=== PATIENT | female | born 1965 | race Caucasian/White ===

== ENCOUNTER 2025-04-20 12:22 | Inpatient (IN) | payer BC, SELFPAY ==
[2025-04-20] VITALS (7 sets, daily range): BP systolic 124–181; BP diastolic 51–96; BMI 37.5; BMI 36.8
[2025-04-20] MEDS: DECADRON 10 MG IV (06:27)
[2025-04-20] MEDS: TORADOL 15 MG IV (06:27)
[2025-04-20] MEDS: NSS 1000 IV (06:28)
--- NOTE | 2025-04-20 06:49 | ED.GENMED ---
History of Present Illness
<Roseanne Atwood PA-C - Last Filed: 04/20/25 09:52>
General
Chief Complaint: Swelling
Time Seen by Provider: 04/20/25 06:03
History of Present Illness
History of Present Illness:
see MDM
Phy Exam
<Roseanne Atwood PA-C - Last Filed: 04/20/25 09:52>
Physical Exam
Physical Exam:
see MDM
Scores
<Roseanne Atwood PA-C - Last Filed: 04/20/25 09:52>
Heart Failure Risk
Heart Failure Risk Score: Not Applicable
Course
<Roseanne Atwood PA-C - Last Filed: 04/20/25 09:52>
Orders/Labs/Results
Orders:
Orders
04/20/25 06:13
CT Neck With Iv Contrast Urgent
Comment:
Reason For Exam: submandibular swelling, muffled voice;
0.9% Sodium Chloride 1000 ml [Nss] 1,000 ml IV BOLUS
Dexamethasone Sod Phosphate [Decadron] 10 mg IV NOW STA
Ketorolac [Toradol] 15 mg IV NOW STA
04/20/25 06:32
COVID-19 Antigen Urgent
Source: Nasal Swab
Complete Blood Count/With Diff Urgent
Comprehensive Metabolic Panel Urgent
Monotest Urgent
Influenza A+B Rapid Molecular Urgent
HOMA Source: Nasal Swab
Specimen Description:
Rapid Strep Group A Urgent
HOMA Source: Throat/Pharynx
Specimen Description:
Date Specimen was Collected: 04/20/25
Time Specimen was Collected: 06:15
04/20/25 09:53
Ampicillin/Sulbactam 3 G [Unasyn] 3 gm 0.9% Sodium Chloride 100 ml [Nss] 100 ml IV NOW
Abnormal Lab Results
04/20/25
06:32
MCHC 31.9 L g/dL
(33.0-37.0)
MPV 11.2 H fL
(7.4-10.4)
BUN 19 H mg/dl
(7-17)
Glucose 162 H mg/dl
(70-99)
AST 41 H U/L
(14-36)
ALT 50 H U/L
(0-35)
Monoscreen Positive A
(Negative)
04/20/25 06:32
04/20/25 06:32
Vital Signs
Initial and Last Documented VS:
Initial Vital Signs
Temp Pulse Resp BP Pulse Ox
98.2 F 91 20 181/88 97
04/20/25 05:44 04/20/25 05:44 04/20/25 05:44 04/20/25 05:44 04/20/25 05:44
Last Documented Vital Signs
Temp Pulse Resp BP Pulse Ox
98.2 F 91 20 141/74 95
04/20/25 05:44 04/20/25 05:44 04/20/25 05:44 04/20/25 07:00 04/20/25 07:45
<Nara Adkins, DO - Last Filed: 04/20/25 10:15>
Orders/Labs/Results
Orders:
Orders
04/20/25 06:13
CT Neck With Iv Contrast Urgent
Comment:
Reason For Exam: submandibular swelling, muffled voice;
0.9% Sodium Chloride 1000 ml [Nss] 1,000 ml IV BOLUS
Dexamethasone Sod Phosphate [Decadron] 10 mg IV NOW STA
Ketorolac [Toradol] 15 mg IV NOW STA
04/20/25 06:32
COVID-19 Antigen Urgent
Source: Nasal Swab
Complete Blood Count/With Diff Urgent
Comprehensive Metabolic Panel Urgent
Monotest Urgent
Influenza A+B Rapid Molecular Urgent
HOMA Source: Nasal Swab
Specimen Description:
Rapid Strep Group A Urgent
HOMA Source: Throat/Pharynx
Specimen Description:
Date Specimen was Collected: 04/20/25
Time Specimen was Collected: 06:15
04/20/25 09:53
Ampicillin/Sulbactam 3 G [Unasyn] 3 gm 0.9% Sodium Chloride 100 ml [Nss] 100 ml IV NOW
Abnormal Lab Results
04/20/25
06:32
MCHC 31.9 L g/dL
(33.0-37.0)
MPV 11.2 H fL
(7.4-10.4)
BUN 19 H mg/dl
(7-17)
Glucose 162 H mg/dl
(70-99)
AST 41 H U/L
(14-36)
ALT 50 H U/L
(0-35)
Monoscreen Positive A
(Negative)
04/20/25 06:32
04/20/25 06:32
Vital Signs
Initial and Last Documented VS:
Initial Vital Signs
Temp Pulse Resp BP Pulse Ox
98.2 F 91 20 181/88 97
04/20/25 05:44 04/20/25 05:44 04/20/25 05:44 04/20/25 05:44 04/20/25 05:44
Last Documented Vital Signs
Temp Pulse Resp BP Pulse Ox
98.2 F 91 20 141/74 95
04/20/25 05:44 04/20/25 05:44 04/20/25 05:44 04/20/25 07:00 04/20/25 07:45
<Roseanne Atwood PA-C - Last Filed: 04/20/25 09:52>
MDM/Problems Addressed
Differential Diagnosis Includes:
see MDM
MDM/Problems Addressed:
Note:
CHIEF COMPLAINT(S)
Neck swelling and pain, sore throat, and left-sided ear pain.
HISTORY OF PRESENT ILLNESS
The patient is a 59-year-old female with a history of Hashimotos thyroiditis, hypertension, who presents with neck swelling and pain, a sore throat, and left-sided ear pain which began a few hours after going to bed last night. The symptoms were
severe enough to wake her up during the night. she first woke with sore throat sensation and L ear pain, the throat hurting more on the L than the R.
then she woke around 4 amd and noticed swelling in her neck, which has stabilized since she woke. . No previous history of salivary gland stones was reported. She mentioned that swallowing is not particularly painful, just uncomfortable, and she
has some changes to her voice; was more muffled earlier but still muffled mildly. took 400mg ibuprofen at 4 am.. T
no fever, chills, rash, trouble breathing
pt is on lisinopril
PAST MEDICAL AND SURGICAL HISTORY
The patient has a history of Hashimotos thyroiditis, hypertension, supraventricular tachycardia, and hyperlipidemia.
CHRONIC MEDICAL CONDITIONS SIGNIFICANTLY AFFECTING CARE
- Hashimotos thyroiditis
- Hypertension
- Supraventricular tachycardia
- Hyperlipidemia
- Pre-diabetes
ALLERGIES
Sulfa antibiotics.
MEDICATIONS
- Levothyroxine for Hashimotos thyroiditis
- Lisinopril 10 mg for hypertension
- Metoprolol for supraventricular tachycardia
- Atorvastatin for hyperlipidemia
- Taken Tylenol and ibuprofen for current pain symptoms.
REVIEW OF SYSTEMS
- Ear, Nose, and Throat: Left-sided ear pain, sore throat, neck swelling, muffled voice.
- Respiratory: No complaints of dyspnea.
- Gastrointestinal: Discomfort on swallowing.
PHYSICAL EXAM
Nursing notes reviewed and vital signs reviewed.
GENERAL: Alert , in no apparent distress
face: no facial swelling
EYE: pupils equal and reactive
NECK: submandibular swelling, JILL, firmness;
submental is soft, sublingual soft;
ENT: b/l TM s clear, pharynx minimal erythema; + uvular edema; no exudate; tonsils symmetric, no parotid swelling
CARDIAC: Regular rate and rhythm, no edema
LUNGS: Clear breath sounds bilaterally, no acute respiratory distress, no wheezes/rales/rhonchi, occ cough
ABDOMEN: Soft, without focal tenderness, no r/g, no cvat, normal bowel sounds
NEUROLOGICAL: Alert and oriented, no focal neuro deficits
SKIN: Warm and dry, skin intact.
MUSCULOSKELETAL: No edema, well perfused.
PSYCH: Normal and appropriate interaction.
PROBLEM LIST
Acute:
- Neck swelling and pain
- Sore throat
- Ear pain
Chronic:
- Hashimotos thyroiditis
- Hypertension
- Supraventricular tachycardia
- Hyperlipidemia
PLAN
- Perform a CT scan of the neck to evaluate for possible salivary gland stone, infection, or other pathology.
- Administer intravenous steroids to manage inflammation.
- Administer intravenous Toradol for pain and inflammation relief.
- Blood work to be taken for further evaluation.
- Test for streptococcal infection, influenza, and COVID-19.
- Consider the possibility of deep space infection or angioedema due to SANDRA inhibitor use, depending on CT findings.
- If the CT findings suggest an infectious cause, consider consulting Ear, Nose, and Throat (ENT) specialist.
DIFFERENTIAL DIAGNOSIS
The Differential Diagnosis includes, in no particular order and is not limited to:
1. Salivary gland stone
2. Streptococcal pharyngitis
3. Influenza
4. COVID-19
5. Angioedema due to SANDRA inhibitor
6. Deep-space neck infection
7. Epiglottitis
8. Lymphadenitis
9. Sublingual or submandibular sialadenitis
10. Peritonsillar abscess
CARE-UPDATE
04/20/25 - 09:34
Patient reports slight improvement in symptoms, particularly in the throat, which now feels better when swallowing and is no longer painful. However, soft tissue swelling in the neck persists, with no discrete lymph nodes or abscess observed on CT
scan. Hood test returned positive, but could be a false positive; angioedema due to lisinopril (which might lead to soft tissue swelling) is considered. Steroids have been administered, and there is a plan to administer IV antibiotics. The patient
will be kept overnight for observation and further consultation with ENT to monitor airway safety and assess further treatment options. No penicillin allergy reported.
d/w dr. leon from ENT
<Roseanne Atwood PA-C - Last Filed: 04/20/25 09:52>
*Pulse Oximetry
SaO2: 97
Oxygen Mode of Delivery: Room air
Patient hypoxic: no (95)
*Critical Care Note
Total Time (30-74mins, 75-104mins- exclusive of procedures): Not Applicable
ED Attending Note
<Roseanne Atwood PA-C - Last Filed: 04/20/25 09:52>
-
Portions of this chart may have been created with voice recognition software.� Occasional wrong word or��sound alike� substitutions may have occurred due to the inherent limitations of voice recognition software.
<Nara Adkins DO - Last Filed: 04/20/25 10:15>
ED Attending Note
Patient seen and examined by attending physician: Yes
I performed the substantive portion of visit, reviewed & personally made and approve the management plan that is documented in note by myself or DONNELL.: Yes
I performed a history and physical exam of patient and discussed management with resident, I reviewed resident's note and agree with documented findings and plan of care.: Yes
ED Attending Note:
59-year-old female presenting to the emergency department for submandibular swelling. Notes that she woke up from sleep with the swelling. Had been having some sore throat yesterday and some uvular irritation. Denies known dental infections,
however was 'messing around 'with one of her right back molars yesterday. Denies any difficulty swallowing, however does note some general discomfort. Denies any new food or exposures. Vital signs are significant for hypertension.
On exam, patient is in no respiratory distress, however does have obvious swelling that seems to be localized to the submandibular area. Floor of the mouth however is soft on palpation. There is uvula swelling and inflammation. Normal phonation
of voice. Patient handling secretions without difficulty. Patient seen and evaluated by physician radiology physician assistant prior to my assessment with appropriate workup. Patient was administered Decadron for concern of swelling and possible infection. CT of
the neck was subsequently obtained which shows soft tissue edema extending from the left submandibular space into the left aspect of the pharynx down to the level of the false vocal cord. Findings of this nature may represent edema or possible
infection, possible early Ludwigs. In discussion with ENT, suspect less suspicious to be a Washington's, however recommending IV antibiotics and respiratory monitoring. Patient reports that she is already feeling better after Decadron. Continues to
protect airway.
Discharge Plan
Departure
Patient Disposition: Admit
Date of Disposition: 04/20/25
Time of Disposition: 09:34
Admit to: IMU
Presentation/result/management discussed w/ accepting MD/DO: Hospitalist
Condition: Fair
Covid-19: Not Applicable
Discharge Problem:
Submandibular swelling, Uvulitis
Prescriptions:
No Action
atorvastatin [Lipitor] 40 mg Tablet
40 mg PO QPM
sertraline 100 mg Tablet
100 mg PO HS
levothyroxine [Synthroid] 125 mcg Tablet
125 mcg PO MOTUWETHFRSA
lisinopril 10 mg Tablet
10 mg PO DAILY
ibuprofen [Advil] 200 mg Tablet
200 mg PO DAILYPRN PRN (Reason: MILD PAIN)
metoprolol succinate [Toprol XL] 25 mg Tablet Extended Release 24 Hr
25 mg PO HS
cholecalciferol (vitamin D3) [Vitamin D3] 25 mcg (1,000 unit) Capsule
25 mcg PO DAILY
omeprazole 20 mg Tablet,Delayed Release (Dr/Ec)
20 mg PO DAILY
Referrals:
Cielo Cruz DO [Family Provider, Family Practice]
Interventions
Interventions:
*Risk Screen - Suicide Last Done: 04/20/25 05:44
*General Assessment Last Done: 04/20/25 05:57
*Neglect/Abuse Screening Last Done: 04/20/25 05:57
*ED COVID-19 Vaccine History Last Done: 04/20/25 05:57
*ED Influenza Vaccine History Last Done: 04/20/25 05:57
[facility] Fall Risk Assessment Tool Last Done: 04/20/25 05:59
ED- Cardiac Assessment Last Done: 04/20/25 05:56
ED- Pulmonary Assessment Last Done: 04/20/25 05:56
ED-Skin Assessment Last Done: 04/20/25 05:56
Discharge Date and Time
Print Language: SPANISH
[2025-04-20 06:52] LABS: Hematocrit 39.2 % (37.0-47.0); Hemoglobin 12.5 g/dL (12.0-16.0); Mean Corp Hgb Conc. 31.9 g/dL (33.0-37.0); Mean Corpuscular Volume 87.1 fL (81.0-99.0); Nucleated Red Blood Cells % 0 %; Platelet Count 198 10^3/uL (130-400); Red Cell Dist. Width 13.0 % (11.5-14.5)
[2025-04-20 07:12] LABS: ALT (SGPT) 50 U/L (0-35); AST (SGOT) 41 U/L (14-36); Albumin 4.6 g/dl (3.5-5.0); Alkaline Phosphatase 56 U/L (38-126); Blood Urea Nitrogen 19 mg/dl (7-17); Calcium 9.8 mg/dl (8.4-10.2); Carbon Dioxide 28 mmol/L (22-30); Chloride 105 mmol/L (98-107); Estimated Creatinine Clearance 84 ml/min; Glucose 162 mg/dl (70-99); Potassium 4.8 mmol/L (3.5-5.1); Sodium 139 mmol/L (135-145); Total Protein 7.8 g/dl (6.3-8.2); eGFR > 60.00
[2025-04-20 07:24] LABS: COVID-19 Antigen Negative (Negative)
[2025-04-20] MEDS: UNASYN IV ×2 (10:22→17:46)
--- NOTE | 2025-04-20 12:01 | HPS.HSE ---
Family Physician
-
Family Physician: Cielo Cruz
Chief Complaint
-
Neck swelling
History of Present Illness
Patient is a 59 years old female with history of Home thyroiditis, hypertension, prediabetes presents with acute onset of left side of the neck and face swelling. Patient reports onset of symptoms overnight. She denies any fever or chills,
abdominal pain. She reports possible exposure to COVID.
On presentation to the emergency room patient is hemodynamically stable, nontoxic with stable airways.
Medical History
Past Medical History
Past Medical History: Reports HTN and Hypothyroidism (Home thyroiditis)
Additional Past Medical History:
Hepatic steatosis
Past Surgical History: Reports None
Social History
Tobacco: Non-smoker
Alcohol: None
Drug: None
Living: With Family
Family History
Family History: Not pertinent
Allergies / Home Medications
Allergies reflects when Allergies were last updated in [employer].
Home Medications with original date entered in [employer]
Allergy/Medication List:
Allergies
Allergy/AdvReac Type Severity Reaction Status Date / Time
clarithromycin (From Biaxin) Allergy Rash Verified 04/20/25 05:42
nut - unspecified Allergy Anaphylaxis Verified 04/20/25 05:43
Sulfa (Sulfonamide Allergy Rash Verified 04/20/25 05:42
Antibiotics)
Home Medications
atorvastatin 40 mg tablet (Lipitor) 40 mg PO QPM 04/20/25
cholecalciferol (vitamin D3) 25 mcg (1,000 unit) capsule (Vitamin D3) 25 mcg PO DAILY 04/20/25
ibuprofen 200 mg tablet (Advil) 200 mg PO DAILYPRN PRN MILD PAIN 04/20/25
levothyroxine 125 mcg tablet (Synthroid) 125 mcg PO MOTUWETHFRSA 04/20/25
lisinopril 10 mg tablet 10 mg PO DAILY 04/20/25
metoprolol succinate 25 mg tablet,extended release 24 hr (Toprol XL) 25 mg PO HS 04/20/25
omeprazole 20 mg tablet,delayed release 20 mg PO DAILY 04/20/25
sertraline 100 mg tablet 100 mg PO HS 04/20/25
Review of Systems
-
A 12 point ROS was completed and negative except as noted: Yes
Physical Exam
Vital Signs
Vital Signs
Temp Pulse Resp BP Pulse Ox
98.2 F 91 20 141/74 95
04/20/25 05:44 04/20/25 05:44 04/20/25 05:44 04/20/25 07:00 04/20/25 07:45
Physical Exam
General: Well Developed, Well Nourished and No Apparent Distress
HEENT: NormoCephalic, Moist mucous membranes, Atraumatic and Other (Normal voice, negative for trismus left side of the face and neck edema with mild diffuse tenderness, no discrete lymphadenopathy, or purulence. Minimal uvular edema)
Respiratory: Clear
Cardiac: S1/S2 and Regular Rhythm; No Murmur or Rub
GI: Soft, Non Tender, Non Distended and Normal Bowel Sounds; No Organomegaly
Rectal: Deferred by Provider
Musculoskeletal: No Clubbing, No Cyanosis and No Edema
Skin: No Rash
Neuro: Nonfocal/grossly intact
Laboratory Results
-
04/20/25 06:32
04/20/25 06:32
Laboratory Results
Total Bilirubin 0.7 mg/dl (0.2-1.3) 04/20/25 06:32
AST 41 U/L (14-36) H 04/20/25 06:32
ALT 50 U/L (0-35) H 04/20/25 06:32
Alkaline Phosphatase 56 U/L (38-126) 04/20/25 06:32
Impression/Plan
-
IMPRESSION:
Acute parotitis, present sialoadenitis.
Differential diagnosis: Viral, less likely bacterial (no evidence of purulence on exam). Less likely allergic reaction (given asymmetry and stable airways)
Other conditions
Hypertension
Home thyroiditis/hypothyroidism
Hepatic steatosis with chronically elevated transaminases
Obesity due to excessive calories with BMI of 37
Depression
Imaging
CT neck
There is soft tissue edema extending from the left submandibular space into the left aspect of the pharynx down to the level of the false vocal fold. There is associated mass effect with effacement of the left piriform sinus and vallecula. Findings
may represent edema or possible infection. Early Washington's angina is possible. The edema extends around the left submandibular gland for which an element of sialoadenitis is possible. No definite sialolithiasis identified. No discrete mass is
identified although direct visualization may be considered to exclude an underlying mass.
PLAN:
Acute parotitis, present sialoadenitis.
Differential diagnosis: Viral, less likely bacterial (no evidence of purulence on exam). Less likely allergic reaction (given asymmetry and stable airways)
COVID-negative
Strep negative
Monoscreen
Reported vaccination for mumps
No systemic symptoms upon presentation. Afebrile with normal CBC.
Exam without organomegaly
Exam with no purulence, mild uveal edema, negative for trismus or airway compromise
Reports significant improvement since steroids administered in the ED
Admitted with ENT consult
Additional testing for EBV: IgG IgM
Empiric coverage with evaluation
Decadron 4 mg IV every 8 hours
Basal bolus protocol with insulin
Hold lisinopril acutely (less likely allergic reaction given presentation and distribution of edema)
Hypothyroidism on replacement
Hepatosteatosis with mild elevation of transaminases
Follow CMP in a.m.
Hypertension
Continue Toprol-XL holding lisinopril
Depression on sertraline
--- NOTE | 2025-04-20 12:34 | EDCM ---
Reviewed chart and met with pt bedside in ED. Lives with her in 2 [address], [address]. Has first floor half bath, full flight to second floor bedroom and full bath.
Independent in ADLs, personal care and ambulation at baseline. No assistive devices. Has glucometer and BP cuff at home.
Confirms prescription coverage.
No hx VN or SNF
PCP: Cielo Cruz
Pharmacy: [facility]
Anticipate discharge home, no needs. CM will continue to follow for any discharge planning needs.
[2025-04-20] MEDS: SYNTHROID PO (15:41)
[2025-04-20 15:53] LABS: Glucose - Point of Care 164 mg/dl (70-99)
[2025-04-20] MEDS: NOVOLOG FLEXPEN-LOW RESISTANCE 1 UNITS SC (16:05)
[2025-04-20] MEDS: DECADRON 4 MG IV (16:05)
[2025-04-20] MEDS: PROTONIX 40 MG PO (16:05)
[2025-04-20] MEDS: LIPITOR 40 MG PO (17:45)
--- NOTE | 2025-04-20 18:25 | PTCARENOTE ---
Pt. arrived from the ED around 1500. Pt. AAOx3, walked from the stretcher to the bed. Pt. oriented to room, nursing assessment completed along with skin assessment. Will continue with current plan of care.
--- NOTE | 2025-04-20 18:30 | W.PN.ENT ---
Today's Communication
-
Likely angioedema from SANDRA-I, continue steroids, d/c planning if patient continues to improve on steroids.
Impression / Plan
-
Patient is a 59 year old woman with acute onset of airway swelling without any infectious history although mono was positive her exam findings are not suggestive of acute mono. I think rather she may have had SANDRA-I angioedema as it was so acute in
onset and quickly responsive to steroids, no WBC elevation, no fevers, and no infectious prodrome. I would recommend steroid taper on d/c and follow up in the ENT office within one week. Likely no role for antibioti at this time.
Subjective Data
-
The patient was seen and examined at the bedside. Full dictation to follow. She explains that pain mainly on the left side of her throat began suddenly last night and evolved julio cesar swelling which involved both sides of her throat. She also had
swelling of her uvula. She reports she feels much better now and was able to eat a grilled cheese sandwich without issue. She denies having any symptoms of fever, sore throat, nasal congestion or URI symptoms before going to bed last night.
Objective Data
-
Vital Signs
Temp Pulse Resp BP Pulse Ox
98.7 F 86 18 166/96 96
04/20/25 15:17 04/20/25 15:17 04/20/25 15:17 04/20/25 15:17 04/20/25 15:17
Intake & Output
04/19/25 04/20/25 04/21/25
06:59 06:59 06:59
Intake:
Oral fluids 660 / 660
Other:
Number of approximated MODERATE 2
amounts of urine
Lab Results
04/20/25 06:32
04/20/25 06:32
Calcium 9.8 mg/dl (8.4-10.2) 04/20/25 06:32
Total Bilirubin 0.7 mg/dl (0.2-1.3) 04/20/25 06:32
AST 41 U/L (14-36) H 04/20/25 06:32
ALT 50 U/L (0-35) H 04/20/25 06:32
Alkaline Phosphatase 56 U/L (38-126) 04/20/25 06:32
Physical Exam
-
GEN: NAD, Alert and oriented
HEENT: Ears and hearing wnl, Nasal exam with scabs left nasal cavity, mild deviation
OC/OP normal, FOM soft to palpation, small mandibular bony torus left side, no tongue edema or uvular edema, posterior pharyngeal wall symmetric, bilateral submandibular glands palpable but soft, no bulky LAD.
Resp: No stridor
Data Reviewed
-
Radiology Results: Report Reviewed and Image Reviewed
[2025-04-20] MEDS: TOPROL XL 25 MG PO (21:02)
[2025-04-20] MEDS: ZOLOFT 100 MG PO (21:02)
[2025-04-20 21:21] LABS: Glucose - Point of Care 159 mg/dl (70-99)
[2025-04-21] MEDS: UNASYN IV ×2 (00:13→05:54)
[2025-04-21] MEDS: DECADRON 4 MG IV ×2 (00:14→10:40)
[2025-04-21] MEDS: SYNTHROID 125 MCG PO (05:54)
[2025-04-21 06:23] LABS: Hematocrit 36.7 % (37.0-47.0); Hemoglobin 12.4 g/dL (12.0-16.0); Mean Corp Hgb Conc. 33.8 g/dL (33.0-37.0); Mean Corpuscular Volume 85.7 fL (81.0-99.0); Nucleated Red Blood Cells % 0 %; Platelet Count 217 10^3/uL (130-400); Red Cell Dist. Width 13.1 % (11.5-14.5)
[2025-04-21 06:24] LABS: ALT (SGPT) 46 U/L (0-35); AST (SGOT) 34 U/L (14-36); Albumin 4.7 g/dl (3.5-5.0); Alkaline Phosphatase 62 U/L (38-126); Blood Urea Nitrogen 14 mg/dl (7-17); Calcium 10.3 mg/dl (8.4-10.2); Carbon Dioxide 26 mmol/L (22-30); Chloride 107 mmol/L (98-107); Estimated Creatinine Clearance 84 ml/min; Glucose 170 mg/dl (70-99); Potassium 4.4 mmol/L (3.5-5.1); Sodium 140 mmol/L (135-145); Total Protein 7.7 g/dl (6.3-8.2); eGFR > 60.00
[2025-04-21 07:38] LABS: Glucose - Point of Care 154 mg/dl (70-99)
[2025-04-21 07:45] VITALS: BP 136/62
[2025-04-21 09:13] LABS: Glycohemoglobin (HgbA1c) 6.7 % (4.0-5.9)
--- NOTE | 2025-04-21 10:13 | W.PN.ENT ---
Today's Communication
-
as above
Impression / Plan
-
Likely SANDRA inhibitor reaction rather than infection.
Would keep her off SANDRA inhibitors indefinitely and look for an alternative class of anti-hypertensive.
She may be discharged today, from our point of view.
She may f/u with us as an outpatient.
Subjective Data
-
The patient feels much better this morning. She is essentially asymptomatic at this point. She denies any recent dental issues which might suggest a dental infection. She does have mild, chronic 'sinus' problems but CT reveals no true sinusitis.
Objective Data
-
Vital Signs
Temp Pulse Resp BP Pulse Ox
97.8 F 74 17 136/62 95
04/21/25 07:45 04/21/25 07:45 04/21/25 07:45 04/21/25 07:45 04/21/25 07:45
Intake & Output
04/20/25 04/21/25 04/22/25
06:59 06:59 06:59
Intake:
Oral fluids 1140 / 1140
Other:
Number of approximated MODERATE 3
amounts of urine
Lab Results
04/21/25 05:29
04/21/25 05:29
Calcium 10.3 mg/dl (8.4-10.2) H 04/21/25 05:29
Total Bilirubin 0.4 mg/dl (0.2-1.3) 04/21/25 05:29
AST 34 U/L (14-36) 04/21/25 05:29
ALT 46 U/L (0-35) H 04/21/25 05:29
Alkaline Phosphatase 62 U/L (38-126) 04/21/25 05:29
Physical Exam
-
Minimal floor of mouth swelling on left but no obstruction of salivary ducts, no palpable stones, masses, adenopathy, etc.
[2025-04-21] MEDS: NOVOLOG FLEXPEN-LOW RESISTANCE 1 UNITS SC (10:34)
[2025-04-21] MEDS: PROTONIX 40 MG PO (10:41)
[2025-04-21] MEDS: VITAMIN D3 (cholecalciferol) 25 MCG PO (10:41)
[2025-04-21 11:36] LABS: Glucose - Point of Care 119 mg/dl (70-99)
[2025-04-21 11:39] VITALS: BP 132/65
[2025-04-21] MEDS: NOVOLOG FLEXPEN-LOW RESISTANCE SC (12:32)
--- NOTE | 2025-04-21 13:43 | W.DS.TRANS ---
DC Summary - [employer]
-
Discharge Instructions:
Discharge Diagnosis/Procedures Allergic reaction to SANDRA inhibitor
Diet Regular
Instructions:
Stand-Alone Forms:
Changes to Home Medications: Yes
Discharge Medications:
DC Medications w/original date entered in [employer]
atorvastatin 40 mg tablet (Lipitor) 40 mg PO QPM 04/20/25
cholecalciferol (vitamin D3) 25 mcg (1,000 unit) capsule (Vitamin D3) 25 mcg PO DAILY 04/20/25
ibuprofen 200 mg tablet (Advil) 200 mg PO DAILYPRN PRN MILD PAIN 04/20/25
levothyroxine 125 mcg tablet (Synthroid) 125 mcg PO MOTUWETHFRSA 04/20/25
metoprolol succinate 25 mg tablet,extended release 24 hr (Toprol XL) 25 mg PO HS 04/20/25
omeprazole 20 mg tablet,delayed release 20 mg PO DAILY 04/20/25
sertraline 100 mg tablet 100 mg PO HS 04/20/25
methylprednisolone 4 mg tablets in a dose pack (Medrol (Tom)) 4 mg PO DAILY #21 ea 04/21/25
Home Medication Changes
Medrol dose pack
Pending Results: No
--- NOTE | 2025-04-21 13:49 | CM ---
Pt is cleared for discharge to home today. She had a allergic reaction to her SANDRA inhibitor and is feeling better, eating a regular diet.
Plan: Discharge to home with no identified needs.
[2025-04-21 14:13] VITALS: BP 148/69
[2025-04-22 02:47] LABS: EBV-EA (D) Ab IgG >150.0 U/mL (<=8.9); EBV-NA IgG 585.0 U/mL (<=17.9); EBV-VCA IgG Antibodies >750.0 U/mL (<=17.9); EBV-VCA IgM Antibodies <10.0 U/mL (<=35.9)
== END 2025-04-21 14:15 | disposition home or self-care (01) | DRG 916 ==
LOC: 3 WEST ACU 12:22
PROVIDERS: Physician Assistant; ADMITTING PHYSICIAN Internal Medicine; CONSULT PHYSICIAN Otolaryngology; EMERGENCY PHYSICIAN Student in an Organized Health Care Education/Training Program; FAMILY PHYSICIAN Family Medicine
DX: T78.3XXA Angioneurotic edema, initial encounter (principal); T78.2XXA Anaphylactic shock, unspecified, initial encounter; I47.10 Supraventricular tachycardia, unspecified; T46.4X5A Adverse effect of angiotensin-converting-enzyme inhibitors, initial encounter; Z11.52 Encounter for screening for COVID-19; E06.3 Autoimmune thyroiditis; E78.5 Hyperlipidemia, unspecified; I10 Essential (primary) hypertension; K11.21 Acute sialoadenitis; R73.03 Prediabetes; R22.1 Localized swelling, mass and lump, neck; X58.XXXA Exposure to other specified factors, initial encounter
CPT/HCPCS: 70491; 80053; 82962; 83036; 85025; 86308; 86663; 86664; 86665; 87070; 87502; 87811; 87880; 96365; 96375; 99285; Q9967